=== PATIENT | female | born 1975 | race Caucasian/White ===

== ENCOUNTER 2017-06-12 15:37 | Emergency (ER) | payer OTHER ==
[~2017-06-12] VITALS: Ht 160 cm; Wt 66.2 kg
[2017-06-12 15:44] VITALS: BP 107/69
--- NOTE | 2017-06-12 15:53 | PHYS DOC ---
Adult General Chief Complaint Chief Complaint: ANKLE PROBLEM HPI HPI Patient is a 41 year old female who presents with mild right anterior ankle pain that began yesterday. [place] she [place] herself. Patient is able to ambulate with no difficulties. She states she does have pain when ambulation. Describes the pain as throbbing. Review of Systems Review of Systems Constitutional: Denies fever or chills [] Musculoskeletal: Mild right anterior ankle pain Integument: Denies rash or skin lesions [] Neurologic: Denies headache, focal weakness or sensory changes [] Allergies Allergies Allergies Coded Allergies Type Severity Reaction Last Updated Verified No Known Drug Allergies 06/12/17 No Physical Exam Physical Exam Constitutional: Well developed, well nourished, no acute distress, non-toxic appearance. [] Back: No tenderness, no CVA tenderness. [] Extremities: Right ankle with mild amount of soft tissue swelling diffusely. Tenderness on palpation of right anterior ankle. Full range of motion to the right ankle including flexion and extension of the foot. +2 right pedal pulse. Cap refill less than 2 seconds the right toes. Sensation intact to the right toes. Neurologic: Alert and oriented X 3, normal motor function, normal sensory function, no focal deficits noted. [] Psychologic: Affect normal, judgement normal, mood normal. [] Current Patient Data Vital Signs Vital Signs Date Time Temp Pulse Resp B/P (MAP) Pulse Ox O2 Delivery O2 Flow Rate FiO2 06/12/17 15:44 98.3 95 18 95 Room Air 98.3 EKG EKG [] Radiology/Procedures Radiology/Procedures [] Course & Med Decision Making Course & Med Decision Making Pertinent Labs and Imaging studies reviewed. (See chart for details) Patient is in the ED right ankle pain that began yesterday [place]. Left ankle x-rays interpreted by radiologist were negative for any acute findings. Patient was placed in a cast by the ED RN , neurovascular exam done by me is normal, cap refill less than 2 seconds. Ice elevation encouraged. Follow-up with orthopedic doctor in a week if pain continues. Dragon Disclaimer Dragon Disclaimer This electronic medical record was generated, in whole or in part, using a voice recognition dictation system. Departure Departure Impression: Primary Impression: Sprain of left ankle Disposition: HOME, SELF-CARE Condition: STABLE Referrals: LEAH DEL REAL MD follow up with your doctor in one week or the provided orthopedic doctor Patient Instructions: Ankle Sprain Additional Instructions: You were seen for left ankle sprain. Ice and elevate the extremity. Wear the air cast as needed and tolerated. Follow-up with orthopedic doctor provided in 1 -2 weeks if pain continues. Take [id number] pain relievers as needed. Problem Qualifiers Primary Impression: Sprain of left ankle Encounter type: initial encounter Involved ligament of ankle: unspecified ligament Qualified Codes: S93.402A - Sprain of unspecified ligament of left ankle, initial encounter MADI ALEJANDRE PETAL [employer]ER HAND Jun 12, 2017 15:53
--- NOTE | 2017-06-12 16:37 | RAD ---
Three-view right ankle radiographs 06/12/2017 Clinical history: Twisting injury to the right ankle. AP, lateral and oblique digital radiographs of the right ankle were obtained. The right ankle mortise is intact. No fracture or dislocation is seen. Soft tissue swelling is seen adjacent to the lateral malleolus of the right ankle. 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 Mild enthesophyte formation is seen involving the plantar aspect of the posterior right calcaneus. Impression: No fracture or dislocation of the right ankle is seen.
== END 2017-06-12 17:07 | disposition home or self-care (01) ==
LOC: ER 15:37
DX: S93.401A Sprain of unspecified ligament of right ankle, initial encounter (principal); X58.XXXA Exposure to other specified factors, initial encounter; Y93.89 Activity, other specified; Y92.830 Public park as the place of occurrence of the external cause; Y99.8 Other external cause status
CPT/HCPCS: 73610; 99284; L4350